=== PATIENT | male | born 1930 | race Caucasian/White ===

== ENCOUNTER 2016-05-18 11:57 | Emergency (ER) | payer MEDICARE ==
[~2016-05-18 11:57] MED LIST: AMBIEN10 MG; ASPIRIN EC LOW81 MG PO; BETAPACE80 M1 PO; CATAPRES0.3 MG; COREG12.5 MG PO; COREG25 MG PO; DETROL LA4 MG; EC ASPIRIN325 MG PO; EXCEDRIN EXTRA1 EACH PO; EXCEDRIN TABLET1 TAB PO; EXFORGE HCT 101 EAC2 PO; FERROUS SU325 ( 65 ); FLEXERIL10 MG; FLEXERIL10 MG PO; FLOMAX0.4 MG PO; HYDROCODONE/A; LEXAPRO10 M1 PO; LEXAPRO20 MG PO; LISINOPRIL40 MG PO; LORCET 10/650 T1 TAB PO; LYRICA75 MG; MULTIVITAMIN1 TAB PO; NEURONTIN100 MG PO; NORCO 10/325 TA1 TAB PO; NORCO 5/325 TAB1 TAB; NORCO 5/3251 TA2 PO; NORVASC5 M1 PO; PLAVIX75 MG; PREDNISONE20 MG PO; PRINIVIL40 MG; PROTONIX20 M1 PO; PROVENTIL HFA6.7 GM IH; REMERON15 MG PO; SENOKOT-S (SENN1 TA1 PO; TESSALON200 MG PO; TOPROL XL100 MG; TRAZODONE50 MG PO; TRIVITAMIN50 ML; TYLENOL325 M1 PO; XARELTO15 MG PO
[2016-05-18] MEDS ORDERED: REMERON15 M1 PO (12:59)
[2016-05-18] MEDS ORDERED: FLOMAX0.4 M1 PO (12:59)
[2016-05-18] MEDS ORDERED: NEURONTIN100 M1 PO (13:00)
[2016-05-18] MEDS ORDERED: TRAZODONE HCL50 M1 PO (13:00)
[2016-05-18] MEDS ORDERED: PROTONIX20 M2 PO (13:00)
[2016-05-18] MEDS ORDERED: COREG12.5 M1 PO (13:00)
[2016-05-18] MEDS ORDERED: SOTALOL80 M1 PO (13:00)
[2016-05-18] MEDS ORDERED: LEXAPRO20 M2 PO (13:00)
[2016-05-18] MEDS ORDERED: AMLOD-VALSA-HC1 EACH PO (13:01)
[2016-05-18 13:03] LABS: BASO % 0.2 % (0-2); EOS % 1.4 % (0-7); EOSINOPHIL ABSOLUTE COUNT 0.1 tho/cmm (0.0-0.7); HCT-HEMATOCRIT 39.4 % (36.0-53.5); HGB-HEMOGLOBIN 12.9 gm/dl (13.5-17.0); IMMATURE GRANULOCYTES ABSOLUTE 0.01 tho/cmm (0-0.03); IMMATURE GRANULOCYTES PERCENT 0.2 % (0-0.3); LYMPH % 15.9 % (20-45); LYMPH ABSOLUTE COUNT 0.8 tho/cmm (0.8-4.5); MCH (MEAN CORPUSCULAR HGB) 28.2 pg (28.0-32.0); MCHC MEAN CORPUSCULAR HGB CONC 32.7 % (32.0-36.0); MONO % 4.1 % (0-12); MONOCYTE ABSOLUTE COUNT 0.2 tho/cmm (0.0-1.2); NEUTROPHILS % 78.2 % (40-80); PLATELET COUNT 136 tho/cmm (150-450); RED BLOOD COUNT 4.58 mil/cmm (4.40-5.70); RED CELL DISTRIBUTION WIDTH 16.1 % (12.4-16.4); WHITE BLOOD COUNT 5.1 tho/cmm (4.0-10.0)
[2016-05-18 13:17] LABS: ALBUMIN 3.4 g/dl (3.5-5.0); ALKALINE PHOSPHATASE 69 U/L (33-138); ALT/SGPT 10 U/L (12-78); ANION GAP 11 mmol/L (0-20); AST/SGOT 14 U/L (10-40); BILIRUBIN,TOTAL 0.3 mg/dl (0.0-1.5); BLOOD UREA NITROGEN 28 mg/dl (6-24); CALCIUM 8.5 mg/dl (8.5-10.5); CARBON DIOXIDE-VENOUS 30 mmol/L (22-32); CHLORIDE 104 mmol/l (96-110); CREATININE 1.47 mg/dl (0.60-1.30); GLUCOSE 113 mg/dL (70-110); MAGNESIUM 2.4 mg/dl (1.8-2.6); SODIUM 141 mmol/L (135-145); eGFR VALUE FOR BLACK 49 mL/Min
== END 2016-05-18 14:45 ==
LOC: EDMED 11:57
PROVIDERS: Emergency Medicine
DX: R53.1 Weakness (principal); I48.91 Unspecified atrial fibrillation; J44.9 Chronic obstructive pulmonary disease, unspecified; I10 Essential (primary) hypertension; M19.90 Unspecified osteoarthritis, unspecified site; N40.0 Benign prostatic hyperplasia without lower urinary tract symptoms; Z86.73 Personal history of transient ischemic attack (TIA), and cerebral infarction without residual deficits; Z79.899 Other long term (current) drug therapy; F17.200 Nicotine dependence, unspecified, uncomplicated
CPT/HCPCS: G8978-GP-CH; G8979-GP-CH; G8980-GP-CH